=== PATIENT | male | born 1950 | race Caucasian/White ===

== ENCOUNTER → 2016-12-25 | Outpatient (CLI) | payer MEDICARE, BC ==
[~2016-12-25] MED LIST: ASCO500T9 PO; ASPI-558 PO; CETI5TAB4 PO; FISH OIL 500 MG1 CAP PO; MULT-806 PO
--- NOTE | 2016-12-25 10:04 | DI ---
Indication: ITS.REASON: M54.5 LOW BACK PAIN PROCEDURE: MRI LUMBAR SPINE W/O CONTRAST: Encounter: Initial Comparison: October 06, 2009 Technique: Multiplanar multisequence MR imaging of the lumbar spine was performed without contrast. Findings: Mild scoliosis. Overall alignment is stable. No acute fracture identified. Degenerative endplate changes at L4-L5. Conus medullaris terminates normally at T12. Bone marrow signal intensity is otherwise normal. The paraspinal soft tissues are grossly unremarkable. Segmental analysis: L1-L2: No focal disk herniation, central canal or neural foraminal stenosis. L2-L3: Normal L3-L4: Normal L4-L5: Moderate disk height loss and slight bulging with degenerative facet disease. No central canal stenosis. Mild to moderate right and mild left neural foraminal stenosis. This is stable from the comparison. L5-S1: Small central disk bulge. No central canal stenosis. Lateral bulging and osteophytes causing severe right neural foraminal stenosis and compression of the exiting right L5 nerve root. Moderate to severe left neural foraminal stenosis as well. This is similar to the comparison. Impression: Overall stable appearance of the lumbar spine with neural foraminal stenosis at L4-L5 and L5-S1 worse on the right. .
== END ==
LOC: IMA 08:51
PROVIDERS: ATTEND Family Medicine
DX: M51.17 Intervertebral disc disorders with radiculopathy, lumbosacral region (principal); M47.9 Spondylosis, unspecified; M54.5 Low back pain

== ENCOUNTER 2016-12-26 06:37 | Day surgery (SDC) | payer MEDICARE, BC ==
[~2016-12-26] VITALS: Ht 175.3 cm; Wt 89.4 kg
[2016-12-26 06:48] VITALS: BP 140/73; PULSE 70; RESP 14; TEMP 97.8; O2SAT 95; Ht 175.3 cm; Wt 89.4 kg
[2016-12-26] MEDS ORDERED: LIDOCAINE 1% (10mg/ml) 2ml SDV INJ ONE (07:00)
[2016-12-26] MEDS ORDERED: LR 1,000 ML IV SCH (07:00)
--- NOTE | 2016-12-26 07:21 | ANESPREOP ---
Anesthesia Record Date and Time DATE: 12/26/16 TIME: 07:20 Proposed Surgical Procedure COLONOSCOPY NPO since: mn Allergies: Coded Allergies: No Known Drug Allergies (Verified Allergy, Unknown, 12/25/16) Ht/Wt/BMI Height: 5 ' 9.00 " Weight: 89.400 kg BMI: 29.1 kg/m2 Vital Signs Date Time Temp Pulse Resp B/P Pulse Ox O2 Delivery O2 Flow Rate FiO2 12/26/16 06:48 97.8 70 14 140/73 95 Room Air Medications Inpatient Medications Current Medications Medications (Trade) Dose Ordered Sig/Nikko Start Time Stop Time Status Last Admin Dose Admin Lactated Ringer's (Lactated Ringers) 1,000 ml @ 50 mls/hr Q20H 12/26/16 07:00 12/26/16 07:08 50 MLS/HR Ascorbic Acid (Vitamin C) 500 Mg Tablet, 1 TAB PO BID, (Reported) Last Taken: on 12/25/16 Aspirin (Aspir 81) 81 Mg Tablet.dr, 81 MG PO DAILY, (Reported) Last Taken: on 12/25/16 Cetirizine Hcl (Zyrtec) 5 Mg Tablet, 5 MG PO PRN, ( Reported) Last Taken: on 12/22/16 Multivitamins (Multivitamin) 1 Tab Tablet, 1 TAB PO DAILY, (Reported) Last Taken: on 09/28/16 Currently on Beta Sukhjinder: No Medical/Surgical History Anesthesia PMH: Reports: Cancer (BASAL CELL- left side nose), Glaucoma, Denies : *Angina, *Diabetes, *Dyspnea, *Hypertension, *NE, Anesthesia Reactions, Arthritis, Asthma, CHF, COPD, CVA/Stroke/TIA, Clotting Problems, Deep Vein Thrombosis, Hepatitis, Hiatal Hernia, Malignant Hyperthermia, Pneumonia, Reflux , Renal Disease, Seizures, Sleep Apnea, Thyroid Disease, Tuberculosis Smoking Status: Former smoker (quit 30 years ago) Substance Use Type: does not use Past Surgical History Orthopedic Surgeries: Yes - R 4TH FINGER Abdominal Surgeries: Yes - HERNIA REPAIR 10+ YRS AGO Genitourinary Surgeries: Yes - PROSTATE BX Cardiac Surgeries: No Endocrine Surgeries: No Reproductive Surgeries: No Neurological Surgeries: No Ear Surgeries: No Nose Surgeries: Yes - NOSE FX 15 Yrs ago Throat Surgeries: No Other Surgeries: Yes - VARICOSE VEINS,COLONOSCOPY Anesthesia Adverse Reactions: FOUND none Family Hx of Anesthesia Advers: none Hx of Motion Sickness: No Physical Exam Respiratory: Bilat breath sounds equal, Lungs clear Cardiovascular: FOUND Regular rate, rhythm Airway Assessment Mallampati Score: I Neck Extension: Fair Overall Assessment: No Airway Concerns ASA: 2 Plan Anesthesia Plan: TIVA, LMA, GETA Discussion Discussed risks/options/alternatives of anesthesia and questions answered. Patient consents. Nursing pain assessment noted. Present: Family Member Attestation Statement Prior to the delivery of any anesthetic medication, I examined the patient, developed the plan, obtained the patient's consent and discussed the risk and benefits of the procedure with the patient/guardian. TISHA RAMIREZ RETORT FORKER December 26, 2016 07:21
[2016-12-26] MEDS ORDERED: PROPOFOL 500mg 50 ML IV ONE (08:21)
--- NOTE | 2016-12-26 08:22 | ANESPO ---
Post-Op Note Date 12/26/16 Time: 08:13 Status Pt Participated in Evaluation: Pt participated in person Vital Signs Date Time Temp Pulse Resp B/P Pulse Ox O2 Delivery O2 Flow Rate FiO2 12/26/16 06:48 97.8 70 14 140/73 95 Room Air Respiratory Function: Airway patent, Regular respirations Cardiovascular Function: Regular pulse Mental Status: Alert/oriented Pain Level Intensity: 0 Hydration: Taking po fluids Complications during Recovery None apparent Follow-Up Instructions Instructions Per Surgeon TISHA RAMIREZ CRNA December 26, 2016 08:22
[2016-12-26 08:39] VITALS: BP 102/53; PULSE 76; RESP 16; TEMP 97.6; O2SAT 97
[2016-12-26 08:54] VITALS: BP 129/75; PULSE 74; RESP 18; O2SAT 96
[2016-12-26 09:09] VITALS: BP 124/74; PULSE 62; RESP 16; O2SAT 96
--- NOTE | 2016-12-26 09:14 | ANESPO ---
Post-Op Note Date 12/26/16 Time: 08:13 Status Pt Participated in Evaluation: Pt participated in person Vital Signs Date Time Temp Pulse Resp B/P Pulse Ox O2 Delivery O2 Flow Rate FiO2 12/26/16 08:39 97.6 76 16 102/53 97 Room Air Respiratory Function: Airway patent, Regular respirations Cardiovascular Function: Regular pulse Mental Status: Alert/oriented Pain Level Intensity: 0 Hydration: Taking po fluids Complications during Recovery None apparent Follow-Up Instructions Instructions Per Surgeon TISHA RAMIREZ CRNA December 26, 2016 09:14
[2016-12-26 09:24] VITALS: BP 130/74; PULSE 62; RESP 20; O2SAT 98
--- NOTE | 2016-12-27 08:20 | OPNOTEF ---
DATE OF PROCEDURE 12/26/2016. SURGEON: Ronaldo Liang MD PREOPERATIVE DIAGNOSIS Colorectal cancer surveillance. POSTOPERATIVE DIAGNOSIS Colorectal cancer surveillance, colonic polyp x1 located 25 cm from the rectal vault, right-sided prostate nodule. PROCEDURE Colonoscopy with polypectomy via hot forceps technique x1. ANESTHESIA TIVA. BRIEF HISTORY Sinan is a 66-year-old male patient of Dr. Louie who was seen for colorectal cancer surveillance. It was elected to proceed with a colonoscopy as a part of his screening. For completeness please refer to office notes. Of note, Sinan told me prior to colonoscopy that his recent PSA test was elevated. FINDINGS Upon colonoscopy there was no evidence for angiodysplastic lesions, diverticula, or shraddha malignancies. Patient was found to have a single colonic polyp at 25 cm from the anal verge. This was a small 4 to 5 mm polyp that was removed via hot forceps technique. Patient was also found to have a firm right-sided prostate nodule. DESCRIPTION OF PROCEDURE After informed consent was obtained, the patient was brought to the endoscopy suite and placed on the table in the left lateral decubitus position. The patient subsequently underwent total intravenous anesthesia by the nurse reimbursement liaison per my request. Next, a digital rectal examination was performed, normal sphincter tone. No rectal masses were appreciated. Patient was found to have a right-sided prostate nodule. An Olympus colonoscope was inserted in the anus and advanced with the lumen of the colon under direct visualization at all times until the cecum was ascertained. Triangulation of the tenia coli, ileocecal valve and appendiceal lumen were all visualized. The scope was then slowly withdrawn, again while maintaining visualization of the lumen at all times. As stated above, the entire colon was without evidence for angiodysplastic lesions, diverticula, or shraddha malignancies. The patient was found to have one small flat colonic polyp as described above. Photographs were obtained for documentation. These polyps were located at 15 cm from the anal verge and removed in their entirety via snare polypectomy technique and submitted for pathologic evaluation. Photographs were obtained for documentation. The scope continued to be withdrawn until it was removed from the patient's anal verge. The patient tolerated the procedure without difficulty and was sent back to the preoperative area in stable condition. Due to the right-sided prostate nodule along with his elevated PSA, I will arrange consultation with Urology. I will communicate this to Dr. Louie. Concerning his colon polyp, we will call him with the pathology results. There is a good chance this is hyperplastic in which case the patient will get to go 10 years. It is turns out to be a tubular adenoma, we will be looking at five years. JOSEPH
== END 2016-12-26 09:20 | disposition home or self-care (01) ==
LOC: NSC 06:37
PROVIDERS: ATTEND Family Medicine
DX: Z12.11 Encounter for screening for malignant neoplasm of colon (principal); K63.5 Polyp of colon; N40.2 Nodular prostate without lower urinary tract symptoms; Z80.42 Family history of malignant neoplasm of prostate; R03.0 Elevated blood-pressure reading, without diagnosis of hypertension; E78.5 Hyperlipidemia, unspecified; M48.06 Spinal stenosis, lumbar region; M51.36 Other intervertebral disc degeneration, lumbar region; Z79.82 Long term (current) use of aspirin
CPT/HCPCS: 45384; J7120

== ENCOUNTER 2017-01-24 02:06 | Observation (INO) ==
[2017-01-24] MEDS ORDERED: NS 1,000 ML IV ONE (02:22)
[2017-01-24] MEDS ORDERED: ONDANSETRON 4 MG/2 ML INJECTION IVP ONE (02:22)
[2017-01-24] MEDS ORDERED: MORPHINE SULFATE 4 MG SYRINGE IVP ONE (02:22)
--- NOTE | 2017-01-24 02:25 | Emergency Department Report ---
General Adult HPI - General Chief complaint: Abdominal Pain Stated complaint: R side pain Time Seen by Provider: 01/24/17 02:16 Source: patient Mode of arrival: ambulatory Limitations: no limitations - History of Present Illness HPI narrative: 66-year-old male presents to emergency department with a chief complaint of right upper quadrant pain. Patient notes that the pain awoke him from sleep at approximately midnight today. Symptoms have been persistent in nature since onset. Patient was at home when the symptoms began. Patient denies any trauma , travel, poorly prepared food, or recent antibiotic use. No other complaints or associated symptoms other than some mild nausea without emesis. Patient does note that the pain does radiate toward his back. He does not note any exacerbating or remitting factors. He describes the pain as sharp. Pain is moderate to severe in nature. - Related Data Home Medications Medication Instructions Recorded Confirmed Aspirin [Aspir 81] 81 mg PO DAILY #0 05/04/13 Cetirizine Hcl (Zyrtec) 5 mg PO PRN #0 05/04/13 Multivitamins (Multivitamin) 1 tab PO DAILY #0 05/04/13 Ascorbic Acid [Vitamin C] 1 tab PO BID #0 tab 12/23/16 Allergies Allergy/AdvReac Type Severity Reaction Status Date / Time No Known Drug Allergies Allergy Unknown Verified 12/25/16 12:38 Review of Systems Constitutional: Denies: fever, chills Eyes: Denies: eye pain, vision change ENT: Denies: ear pain, throat pain, dental pain Cardiovascular: Denies: chest pain, dyspnea on exertion Respiratory: Denies: cough, dyspnea Gastrointestinal: Reports: abdominal pain, nausea. Denies: vomiting, diarrhea Genitourinary: Denies: urgency, dysuria Musculoskeletal: Denies: back pain, arthralgia Integumentary: Denies: erythema, rash Neurological: Denies: headache, numbness Psychiatric: Denies: anxiety, depression Endocrine: Denies: fatigue, heat or cold intolerance Hematological/Lymphatic: Denies: easy bleeding, easy bruising Allergic/Immunologic: Denies: facial swelling, urticaria PFSH Negative. Surgical History: Negative. Family History: Negative. - Social History Smoking status: Never smoker Substance use type: does not use Alcohol intake frequency: a few times a month Physical Exam - Limitations Limitations: no limitations - General General appearance: alert, in no apparent distress - Normal Exams: Head:: Normocephalic without trauma Eyes:: Pupils are PERRLA w/ EOMI, No scleral icterus, irritation, or foreign bodies noted ENMT:: No facial trauma, nasal exudates, pharyngeal erythema, or exudates are noted Dental: No fractured, loose, or missing teeth noted Neck:: Full range of motion, without adenopathy, JVD, bruits or thyromegaly Chest/Respirations:: Clear all sharma Cardiovascular:: Regular rate and rhythm, without murmur or gallop, Pulses 2+ all extremities, capillary refill, <2 seconds all extremities Abdomen:: Bowel sounds positive, non-distended, no hepatosplenomegaly, masses or bruits noted (off. Tender to palpation in the right upper quadrant/ epigastrium. No rebound or guarding.) Lymphatic:: No lymphadenopathy, or lymphedema noted Musculoskeletal:: No tenderness, or deformity noted, good range of motion, all extremities Integumentary:: No rashes, hives, or bruising noted, hair and nails, without abnormality Neurological:: Patient is alert, and oriented, cranial nerves, motor/sensory/ cerebellar, exams w/o gross deficits, to observation Psychiatric:: Patient exhibits, appropriate attention, emotion and affect Course Vital Signs Temperature 97.8 F 01/24/17 02:06 Pulse Rate 59 L 01/24/17 02:06 Respiratory Rate 20 01/24/17 02:06 Blood Pressure 136/95 H 01/24/17 02:06 Pulse Oximetry 98 01/24/17 02:06 Temperature 97.8 F 01/24/17 02:06 Pulse Rate 64 01/24/17 04:20 Respiratory Rate 18 01/24/17 04:20 Blood Pressure 153/70 H 01/24/17 04:20 Pulse Oximetry 97 01/24/17 04:20 Medical Decision Making - [facility] Narrative Medical decision making narrative: Labs / imaging were discussed in detail with the patient and family and questions are answered. Patient is given IV hydration. Patient is given parental narcotic and antiemetic medications intravenously with improvement of symptoms. Patient's pain returns however. Patient requires multiple doses of analgesic pain medication for comfort. Patient's CT scan of the abdomen/pelvis does not show any anatomic explanation for the patient's right upper quadrant discomfort. Patient is admitted to the service of the hospitalist in improved condition. Patient will be admitted for intractable abdominal discomfort at this time. Patient is discussed with Dr. Monahan who is in agreement with the current plan of management. Patient is admitted to the service of Dr. Mari. Patient is in agreement with the current plan of management. Antibiotic therapy is not initiated at this time as patient is afebrile, normal white count, normal liver function tests and his lipase is not greater than twice the upper limit of normal. Patient will undergo further evaluation and treatment while under the care of the hospitalist. Due to the severe nature of the patient's discomfort CT scan of the abdomen pelvis was performed at this time. - Differential Diagnosis cholecystitis, cholelithiasis, pancreatitis, intractable abdominal pain - Lab Data Result diagrams: 01/24/17 02:37 01/24/17 02:37 Lab Results 01/24/17 01/24/17 01/24/17 Range/Units 02:37 02:37 02:37 WBC 7.8 (4.5-11.0) T/MM3 RBC 4.81 (4.50-5.90) M/MM3 Hgb 15.4 (13.5-17.5) GM/DL Hct 45.2 (41-53) % MCV 94.0 (80-100) UM3 MCH 32.0 (26-34) UUG MCHC 34.1 (31-37) GM/DL RDW Std Deviation 41.6 (36.9-50.2) FL Plt Count 170 (130-400) T/MM3 MPV 9.7 (9.4-12.4) UM3 Immature Gran % (Auto) 0.1 (0.0-0.5) % Neut % (Auto) 61.3 (33-66) % Lymph % (Auto) 30.2 (23-45) % [place] % (Auto) 6.5 (0-9.0) % Eos % (Auto) 1.8 (0-4) % Baso % (Auto) 0.1 (0-2) % Neut # 4.8 (1.8-7.7) T/MM3 Lymph # 2.4 (1-4.8) T/MM3 [place] # 0.5 (0-0.8) T/MM3 Eos # 0.1 (0-0.5) T/MM3 Baso # 0.0 (0-0.2) T/MM3 Abs Immat Gran (auto) 0.01 (0.00-0.03) T/MM3 Turbidity < 20 (0-20) Sodium 147 H (134-144) MEQ/L Potassium 4.3 (3.6-5) MEQ/L Chloride 106 (98-107) MEQ/L Carbon Dioxide 28 (22-30) MEQ/L Anion Gap 13 (5-15) MEQ/L BUN 20.0 (9-20) MG/DL Creatinine 1.2 (0.8-1.5) MG/DL GFR Calculation 61 BUN/Creatinine Ratio 17 (6-26) RATIO Glucose 121 H (75-110) MG/DL Calculated Osmolality 286 H (261-280) MOSM/KG Calcium 9.8 (8.4-10.2) MG/DL Total Bilirubin 0.60 (0.20-1.30) MG/DL Icterus Index < 2 (0-7) AST 33 (17-59) U/L ALT 60 (21-72) U/L Alkaline Phosphatase 65 (38-126) U/L Troponin I < 0.012 (0-0.12) ng/ml Total Protein 7.5 (6.3-8.2) G/DL Albumin 4.6 (3.5-5.0) G/DL Globulin 2.9 (2.4-3.6) G/DL Albumin/Globulin Ratio 1.6 (1.1-2.2) RATIO Lipase 411 H (23-300) U/L Specimen Hemolysis < 15 < 15 (0-25) Ur Collection Type Urine Color (YELLOW) Urine Clarity Urine pH (5.0-8.0) Ur Specific [place] (1.015-1.025) Urine Protein (NEGATIVE) Urine Glucose (UA) (NEGATIVE) Urine Ketones (NEGATIVE) Urine Occult Blood (NEGATIVE) Urine Nitrate (NEGATIVE) Urine Bilirubin (NEGATIVE) Urine Urobilinogen (NORMAL) EU/DL Ur Leukocyte Esterase (NEGATIVE) Urinalysis Comment 01/24/17 Range/Units 03:20 WBC (4.5-11.0) T/MM3 RBC (4.50-5.90) M/MM3 Hgb (13.5-17.5) GM/DL Hct (41-53) % MCV (80-100) UM3 MCH (26-34) UUG MCHC (31-37) GM/DL RDW Std Deviation (36.9-50.2) FL Plt Count (130-400) T/MM3 MPV (9.4-12.4) UM3 Immature Gran % (Auto) (0.0-0.5) % Neut % (Auto) (33-66) % Lymph % (Auto) (23-45) % [place] % (Auto) (0-9.0) % Eos % (Auto) (0-4) % Baso % (Auto) (0-2) % Neut # (1.8-7.7) T/MM3 Lymph # (1-4.8) T/MM3 [place] # (0-0.8) T/MM3 Eos # (0-0.5) T/MM3 Baso # (0-0.2) T/MM3 Abs Immat Gran (auto) (0.00-0.03) T/MM3 Turbidity (0-20) Sodium (134-144) MEQ/L Potassium (3.6-5) MEQ/L Chloride (98-107) MEQ/L Carbon Dioxide (22-30) MEQ/L Anion Gap (5-15) MEQ/L BUN (9-20) MG/DL Creatinine (0.8-1.5) MG/DL GFR Calculation BUN/Creatinine Ratio (6-26) RATIO Glucose (75-110) MG/DL Calculated Osmolality (261-280) MOSM/KG Calcium (8.4-10.2) MG/DL Total Bilirubin (0.20-1.30) MG/DL Icterus Index (0-7) AST (17-59) U/L ALT (21-72) U/L Alkaline Phosphatase (38-126) U/L Troponin I (0-0.12) ng/ml Total Protein (6.3-8.2) G/DL Albumin (3.5-5.0) G/DL Globulin (2.4-3.6) G/DL Albumin/Globulin Ratio (1.1-2.2) RATIO Lipase (23-300) U/L Specimen Hemolysis (0-25) Ur Collection Type Urine, clean catch Urine Color Yellow (YELLOW) Urine Clarity Clear Urine pH 6.0 (5.0-8.0) Ur Specific [place] 1.020 (1.015-1.025) Urine Protein Negative (NEGATIVE) Urine Glucose (UA) Negative (NEGATIVE) Urine Ketones Negative (NEGATIVE) Urine Occult Blood Negative (NEGATIVE) Urine Nitrate Negative (NEGATIVE) Urine Bilirubin Negative (NEGATIVE) Urine Urobilinogen 0.2 (NORMAL) EU/DL Ur Leukocyte Esterase Trace A (NEGATIVE) Urinalysis Comment Microscopic not ind. - Radiology Data CT ABD/PELVIS: Gallbladder is distended but no stones. No pericholecystic fluid. No wall thickening. Normal pancreas. No anatomic explanation for right upper quadrant pain. Moderate prostate enlargement. No free air or free fluid. - EKG Data EKG #1 EKG results narrative: Sinus rhythm. 60 bpm. No STEMI. Left axis deviation. Disposition Clinical Impression: Abdominal pain Qualifiers: Abdominal location: unspecified location Qualified Code(s): R10.9 - Unspecified abdominal pain Disposition: 02 To [facility] Time of Disposition: 04:15 (Admit. Dr. Mari. DW: Randall Funes.) - Seen By: physician
[2017-01-24] MEDS ORDERED: HYDROMORPHONE 2 MG/ML INJECTION IVP ONE ×2 (03:00→04:00)
[2017-01-24] MEDS ORDERED: SALINE FLUSH 10ml SYRINGE ONE (03:35)
[2017-01-24] MEDS ORDERED: NS 100 ML ONE (03:35)
[2017-01-24] MEDS ORDERED: IOHEXOL 300mg/ml 100ml INJECTION ONE (03:35)
[2017-01-24] MEDS: SALINE FLUSH 10ml SYRINGE IVF PRN ×2 (04:15→05:16)
--- NOTE | 2017-01-24 04:42 | History & Physical Report ---
History of Present Illness Date: 01/24/17 Chief complaint: abd pain HPI: 66-year-old male presents to emergency department with a chief complaint of right upper quadrant pain that awoke him from sleep at approximately midnight 5 h ago. He had been previously well this AM/earlier today. Symptoms have been persistent in nature since onset. Patient was at home when the symptoms began, he denies any trauma, travel, poorly prepared food, or recent antibiotic use. He describes the pain as sharp, moderate to severe in nature. Associated with mild nausea with dry heaves at home that have continued here, the pain does radiate toward his back slightly He does not note any palliating or provoking factors. He has received several doses of IV opiates in the emergency room without complete resolution of the pain, but certainly much better, now rating 3 /10 He denies any alcohol use. He does take aspirin daily 81 mg. He has seen his PCP recently and been referred to specialist for elevated PSA, debating on further imaging. Had prostate bx 2 years ago "clear" Denies dysuria hematuria. Denies cp soa. Had "normal stress test" 10 years ago as part of a routine physical, recently had colonoscopy for screening that revealed non- concerning polyp, says his doc recommended repeat in 10 years. Review of Systems All systems: reviewed and no additional remarkable complaints except as stated - Integumentary/Breasts Integumentary: Absent: erythema, rash PFSH prostate enlargement with recently elevated PSA 9.2, allergic rhinitis Surgical History: Dupytren's hand surgery, prostate bx, rhinoplasty for fx, hernia repair, varicose vein repair Family History: father age 95 Alzhemers and had prostate CA, and uncle w prostate ca, mom age 58 lymphoma, 3 sibs, a sister has had 2 valve replacements, otherwise neg - Social History Smoking status: Never smoker Alcohol intake: current Alcohol intake frequency: a few times a month Last drink: days (ago) (several) Housing: house Household members: spouse service: No Current occupational status: retired (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, 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, just recently retired) Medications Home Medications Medication Instructions Recorded Confirmed Type Aspirin [Aspir 81] 81 mg PO DAILY #0 05/04/13 History Cetirizine Hcl (Zyrtec) 5 mg PO PRN #0 05/04/13 History Multivitamins (Multivitamin) 1 tab PO DAILY #0 05/04/13 History Ascorbic Acid [Vitamin C] 1 tab PO BID #0 tab 12/23/16 History Allergies Allergy/AdvReac Type Severity Reaction Status Date / Time No Known Drug Allergies Allergy Unknown Verified 01/24/17 06:00 Exam Vital Signs: Temp Pulse Resp BP Pulse Ox 97.8 F 64 18 153/70 H 97 01/24/17 02:06 01/24/17 04:20 01/24/17 04:20 01/24/17 04:20 01/24/17 04:20 Height: 1.8 m Weight: 90.2 kg - Constitutional Present: no acute distress - Routine HEENT Exam Head: Present: normocephalic, atraumatic Eye: Present: EOMI, PERRL - Routine Neck Exam Present: supple - Routine Chest/Breast/Axilla Exam Chest wall: Absent: tenderness - Routine Respiratory Exam Present: CTA bilaterally. Absent: accessory muscle use - Routine Cardiovascular Exam Present: RRR, S1, S2, no murmur - Routine Abdominal Exam Present: soft, tenderness (RUQ) - Routine Back/Spine/Pelvis Exam Back/Spine: Present: full ROM - Routine Skin Exam Present: intact - Routine Neurological Exam Present: alert, oriented X3, CN II-XII intact. Absent: sensory deficit, motor deficit - Routine Psychiatric Exam Present: normal affect Results - Labs CBC & Chem 7: 01/24/17 02:37 01/24/17 02:37 - ECG Data Tracing #1 reported non ischemic by ER, not in system for me to review at this moment Assessment and Plan (1) RUQ abdominal pain Current visit: Yes Status: Acute 01/24/17 04:44 gallbladder felt seems to be most likely with the nature of the pain, possible passed a small stone in the common bile, his lipase is minimally elevated, no evidence aside from his subjective complaints of pain gallbladder, no other significant findings. check a sonogram of his abdomen, nothing by mouth continue iv opiates for severe pain. i pronounced hours this time and observation status. additional findings warrant patient and further consultation surgery will proceed as such we'll also dose of iv PPI at this time. consider gi evaluation if gallbladder is likely being not the source 01/24/17 06:16 (2) Prostate enlargement Current visit: Yes Status: Acute (3) Allergic rhinitis Current visit: Yes Status: Acute GI Prophylaxis: Protonix Hospital Course Summary Disclaimer: The visit summary below is not to be considered part of the above Progress Note.
[2017-01-24] MEDS ORDERED: HYDROMORPHONE 2 MG/ML INJECTION IVP PRN (05:04)
[2017-01-24] MEDS ORDERED: ONDANSETRON 4 MG/2 ML INJECTION IVP PRN (05:04)
[2017-01-24] MEDS: NS 1,000 ML IV SCH ×2 (05:15→15:35)
[2017-01-24 05:23] VITALS: BMI 27.7
[2017-01-24] MEDS: PANTOPRAZOLE 40 MG INJECTION IVP SCH (06:51)
--- NOTE | 2017-01-24 07:54 | CT Scan Report ---
Indication: ABD PAIN PROCEDURE: CT abdomen pelvis w con: Encounter: Initial Comparison: None Technique: Axial CT images were performed through the abdomen and pelvis after the administration of intravenous contrast. Coronal and sagittal two-dimensional reformats. Automated Exposure Control and Iterative Reconstruction dose reducing techniques were utilized. Contrast: Omnipaque 300 97 mL Findings: The lung bases are clear. The liver is decreased in attenuation relative to the spleen consistent with fatty infiltration. No bile duct dilatation. The spleen, gallbladder, pancreas and adrenal glands are normal. Large stones in the lower pole of the right kidney, nonobstructing. Small bilateral renal cysts. No abdominal or pelvic lymphadenopathy. Bladder is normal. Prostate is slightly enlarged. The rectum is unremarkable. No free fluid. No evidence of a bowel obstruction. The appendix is normal. Bone windows show no acute findings. Small fat-containing left inguinal hernia. Impression: 1. No acute disease process seen. 2. Hepatic steatosis. 3. Right nephrolithiasis. There is a preliminary report by [employer].. .
--- NOTE | 2017-01-24 08:06 | Ultrasound Report ---
Indication: RUQ abd pain PROCEDURE: US abdomen complete: Encounter: Initial Comparison: None Technique: Grayscale and color Doppler sonographic imaging of the abdomen was performed. Findings: Hepatic parenchyma is homogeneous without evidence for focal mass. The gallbladder is abnormal with borderline wall thickening at just over 3 mm. There is echogenic sludge and shadowing mobile gallstones present. Sonographic Adams's sign was reportedly positive. Questionable pericholecystic fluid versus gallbladder wall edema. Both the intra and extrahepatic biliary system are of normal caliber with the common duct measuring 7 mm in dimension. Visualized portions of the head and body of the pancreas are unremarkable. Both kidneys are present without collecting system dilatation. The right measures 10.7 cm in length and left measures 11.3 cm. Right renal cysts. The spleen is unremarkable. The visualized portions of the aorta and IVC are unremarkable. No free fluid. Impression: Findings compatible with acute cholecystitis in the appropriate clinical setting. Surgical evaluation is recommended. .
[2017-01-24] MEDS: ACETAMINOPHEN 325 MG TABLET PO PRN (15:57)
[2017-01-25] MEDS: NS 1,000 ML IV SCH (01:36)
[2017-01-25] MEDS: ACETAMINOPHEN 325 MG TABLET PO PRN (04:02)
[2017-01-25 08:10] VITALS: BP 146/78; PULSE 78; RESP 16; TEMP 97.6; O2SAT 94
[2017-01-25] MEDS: PANTOPRAZOLE 40 MG INJECTION IVP SCH (09:11)
--- NOTE | 2017-01-25 10:22 | Progress Note ---
Subjective: Pt had breakfast and is doing well. Wants to have lunch and if he is fine, he will go home and F/U with his PCP soon. Objective Vital signs: Temp Pulse Resp BP Pulse Ox 97.6 F 78 16 146/78 H 94 01/25/17 08:00 01/25/17 08:00 01/25/17 08:00 01/25/17 08:00 01/25/17 08:00 Rhythm: Normal Sinus Rhythm Weight: 90.7 kg - Constitutional Present: no acute distress - Routine HEENT Exam Head: Present: normocephalic, atraumatic Eye: Present: EOMI, PERRL - Routine Respiratory Exam Present: CTA bilaterally - Routine Cardiovascular Exam Present: RRR, no murmur - Routine Abdominal Exam Present: soft Comments: Pt has RUQ tenderness but no rebound and also has RLQ tenderness. - Routine Extremities Exam Absent: cyanosis, clubbing, edema - Routine Musculoskeletal Exam Musculoskeletal: no clubbing or cyanosis - Routine Neurological Exam Present: alert, oriented X3 - Routine Psychiatric Exam Present: normal affect Results - Labs CBC & Chem 7: 01/25/17 04:05 01/25/17 04:05 Assessment and Plan (1) RUQ abdominal pain Current visit: Yes Status: Acute 01/24/17 04:44 gallbladder felt seems to be most likely with the nature of the pain, possible passed a small stone in the common bile, his lipase is minimally elevated, no evidence aside from his subjective complaints of pain gallbladder, no other significant findings. check a sonogram of his abdomen, nothing by mouth continue iv opiates for severe pain. i pronounced hours this time and observation status. additional findings warrant patient and further consultation surgery will proceed as such we'll also dose of iv PPI at this time. consider gi evaluation if gallbladder is likely being not the source 01/24/17 06:16 (2) Prostate enlargement Current visit: Yes Status: Acute (3) Allergic rhinitis Current visit: Yes Status: Acute Assessment and Plan: This is a 66 YO male that came with severe RUQ pain N/V and improved. U/S suggested acute cholecystitis. U/S "............................... The gallbladder is abnormal with borderline wall thickening at just over 3 mm. There is echogenic sludge and shadowing mobile gallstones present. Sonographic Adams's sign was reportedly positive. Questionable pericholecystic fluid versus gallbladder wall edema. Both the intra and extrahepatic biliary system are of normal caliber with the common duct measuring 7 mm in dimension. Visualized portions of the head and body of the pancreas are unremarkable. Both kidneys are present without collecting system dilatation. The right measures 10.7 cm in length and left measures 11.3 cm. Right renal cysts. The spleen is unremarkable. The visualized portions of the aorta and IVC are unremarkable. No free fluid. Impression: Findings compatible with acute cholecystitis in the appropriate clinical setting. Surgical evaluation is recommended. .............................." He has improved and was able to tolerate breakfast. Will D/C after lunch if stable. Dx ? of Cholecysitits ? Vs viral syndrome. - No WBC count elevation, LFT's remain normal. - D/C after lunch if stable. Sepsis Assessment - Evaluation Sepsis screening result: No Definite Risk Hospital Course Summary Disclaimer: The visit summary below is not to be considered part of the above Progress Note.
--- NOTE | 2017-01-25 14:11 | Discharge Instructions ---
Discharge Plan - Med Rec/Dispo Prescriptions: Continue Ascorbic Acid [Vitamin C] 1 tab PO BID #0 tab Multivitamins (Multivitamin) 1 tab PO DAILY #0 Cetirizine Hcl (Zyrtec) 5 mg PO PRN #0 Aspirin [Aspir 81] 81 mg PO DAILY #0 Discharge Instructions/Outpatient Orders: Final Provider Discharge Instructions Location: Determined By Patient - Disposition 01 Discharged Home, Self-Care
--- NOTE | 2017-01-25 14:14 | Discharge Summary ---
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 He had been previously well this AM/earlier today. Symptoms have been persistent in nature since onset. Patient was at home when the symptoms began, he denies any trauma, travel, poorly prepared food, or recent antibiotic use. He describes the pain as sharp, moderate to severe in nature. Associated with mild nausea with dry heaves at home that have continued here, the pain does radiate toward his back slightly He does not note any palliating or provoking factors. He has received several doses of IV opiates in the emergency room without complete resolution of the pain, but certainly much better, now rating 3 /10 He denies any alcohol use. He does take aspirin daily 81 mg. He has seen his PCP recently and been referred to specialist for elevated PSA, debating on further imaging. Had prostate bx 2 years ago "clear" Denies dysuria hematuria. Denies cp soa. Had "normal stress test" 10 years ago as part of a routine physical, recently had colonoscopy for screening that revealed non- concerning polyp, says his doc recommended repeat in 10 years. Hospital Course Hospital course: Pt was admitted to the hospital. He had abdominal CT that did not show any gallstones or pancreatitis, however U/S was borderline. Pt improved over night after admission and then had again nausea, and the RUQ pain persisted. He again improved this AM, was able to eat breakfast and lunch and the pain has not recurred. He will be going home now. U/S (01/24/2017) "............................... The gallbladder is abnormal with borderline wall thickening at just over 3 mm. There is echogenic sludge and shadowing mobile gallstones present. Sonographic Adams's sign was reportedly positive. Questionable pericholecystic fluid versus gallbladder wall edema. Both the intra and extrahepatic biliary system are of normal caliber with the common duct measuring 7 mm in dimension. Visualized portions of the head and body of the pancreas are unremarkable. Both kidneys are present without collecting system dilatation. The right measures 10.7 cm in length and left measures 11.3 cm. Right renal cysts. The spleen is unremarkable. The visualized portions of the aorta and IVC are unremarkable. No free fluid. Impression: Findings compatible with acute cholecystitis in the appropriate clinical setting. Surgical evaluation is recommended. .............................." Dx ? of Cholecysitits ? Vs viral syndrome. Pt is much improved, will proceed with D /C home, pt to F/U with PCP or come back if symptoms recurr. - No WBC count elevation, LFT's remain normal. - No antibiotics were given. Discharge Plan - Med Rec/Dispo Prescriptions: Continue Ascorbic Acid [Vitamin C] 1 tab PO BID #0 tab Multivitamins (Multivitamin) 1 tab PO DAILY #0 Cetirizine Hcl (Zyrtec) 5 mg PO PRN #0 Aspirin [Aspir 81] 81 mg PO DAILY #0 Discharge Instructions/Outpatient Orders: Final Provider Discharge Instructions Location: Determined By Patient - Disposition 01 Discharged Home, Self-Care
== END 2017-01-25 15:25 | disposition home or self-care (01) ==
LOC: ED 02:06 → MED 02:06
PROVIDERS: ADMIT Pediatrics; ATTEND Internal Medicine